=== PATIENT | male | born 1940 | race Caucasian/White ===

== ENCOUNTER 2017-04-05 11:20 | Emergency (ER) | payer MEDICARE ==
[2017-04-05] MEDS ORDERED: Adacel (T-DAP) 0.5 ML VIAL ONE (11:37)
== END 2017-04-05 12:00 | disposition home or self-care (01) ==
LOC: MADERS 11:20
DX: S50.11XA Contusion of right forearm, initial encounter (principal); E03.9 Hypothyroidism, unspecified; I10 Essential (primary) hypertension; Z79.899 Other long term (current) drug therapy; X58.XXXA Exposure to other specified factors, initial encounter; Y92.009 Unspecified place in unspecified non-institutional (private) residence as the place of occurrence of the external cause
CPT/HCPCS: 90471; 90715

== ENCOUNTER 2019-07-13 11:16 | Emergency (ER) | payer MEDICARE ==
[~2019-07-13 11:16] MED LIST: Sodium Chloride Irrig Solution 250 ML BOT ONE
[2019-07-13] MEDS ORDERED: Lidocaine 1% 20 ML MDV ONE (11:41)
[2019-07-13] MEDS ORDERED: Adacel (T-DAP) 0.5 ML SYRINGE ONE ×2 (11:49→11:54)
[2019-07-13] MEDS ORDERED: Bacitracin 1 PK ONE (12:11)
== END 2019-07-13 12:21 | disposition home or self-care (01) ==
LOC: MADERS 11:16
DX: S61.213A Laceration without foreign body of left middle finger without damage to nail, initial encounter (principal); E03.9 Hypothyroidism, unspecified; I10 Essential (primary) hypertension; Z79.899 Other long term (current) drug therapy; Z23 Encounter for immunization; W26.9XXA Contact with unspecified sharp object(s), initial encounter
CPT/HCPCS: 12002; 90471; 90715; J2001

== ENCOUNTER 2021-08-24 16:21 | Emergency (ER) | payer OTHER, MEDICARE ==
[~2021-08-24 16:21] MED LIST changes: +Iopamidol 370 76% 100 ML VIAL ONE; -Sodium Chloride Irrig Solution 250 ML BOT ONE
[2021-08-24 18:02] LABS: #Basophils 0.1 thou/uL (0.0-0.2); #Eosinphils 0.3 thou/uL (0.0-0.7); #Lymphocytes 1.2 thou/uL (1.20-3.40); #Neutrophils 5.3 thou/uL (1.40-6.50); %Basophils 0.6 % (0.0-1.0); %Eosinophils 3.7 % (0.0-10.0); %Lymphocytes 15.6 % (21.0-51.0); %Monocytes 12.4 % (0.0-10.0); %Neutrophils 67.7 % (42.0-75.0); Hemoglobin 13.9 g/dL (14.0-18.0); Mean Corpuscular HGB CONC 31.8 g/dL (32.0-36.0); Mean Corpuscular Hemoglobin 29.7 pg (27.0-31.0); Mean Corpuscular Volume 93.5 fL (78.0-98.0); Mean Platelet Volume 7.5 fL (7.4-10.4); Platelet Count 172 thou/uL (130-400); RBC Distribution Width 13.6 % (11.5-14.5); Red Blood Cell (RBC) Count 4.67 mill/uL (4.70-6.10); White Blood Cell (WBC) Count 7.8 thou/uL (4.8-10.8)
[2021-08-24 18:08] LABS: INR-International Normal Ratio 1.1; Prothrombin Time 13.9 sec (12.0-14.7)
[2021-08-24 18:16] LABS: ALT (SGPT) 16 U/L (8-55); AST (SGOT) 17 U/L (5-34); Albumin 4.1 g/dL (3.4-4.8); Alkaline Phosphatase 111 U/L (40-110); Anion Gap 11 mmol/L (10-20); BUN (Urea Nitrogen) 16 mg/dL (8.4-25.7); Bilirubin, Total 0.4 mg/dL (0.2-1.2); Calc. Creatinine Clearance 0 mL/min (70-130); Calcium 9.4 mg/dL (7.8-10.44); Carbon Dioxide 27 mmol/L (23-31); Chloride 106 mmol/L (98-107); Globulin 2.5 g/dL (2.4-3.5); Glucose 108 mg/dL (83-110); Potassium 4.2 mmol/L (3.5-5.1); Protein, Total 6.6 g/dL (5.8-8.1); Sodium 140 mmol/L (136-145)
[2021-08-24] MEDS ORDERED: Morphine 4 MG/ML VIAL ONE (20:02)
== END 2021-08-24 20:25 | disposition home or self-care (01) ==
LOC: MADERS 16:21
DX: S20.211A Contusion of right front wall of thorax, initial encounter (principal); E03.9 Hypothyroidism, unspecified; I10 Essential (primary) hypertension; V83.5XXA Driver of special industrial vehicle injured in nontraffic accident, initial encounter
CPT/HCPCS: 71260; 74177; 80053; 84484; 85025; 85610; 93005; 96374; J2270; Q9967

== ENCOUNTER 2023-09-18 09:53 | Emergency (ER) | payer MEDICARE, OTHER | END 2023-09-18 11:15 | disposition home or self-care (01) | LOC: MADERS 09:53 | DX: M79.602 Pain in left arm (principal); E03.9 Hypothyroidism, unspecified; I10 Essential (primary) hypertension; Z87.891 Personal history of nicotine dependence; Z79.890 Hormone replacement therapy; Z79.899 Other long term (current) drug therapy ==